=== PATIENT | male | born 1950 | race Caucasian/White ===

== ENCOUNTER 2019-12-03 13:35 | Emergency (ER) | payer MEDICARE ==
--- NOTE | 2019-12-03 15:12 | EDM.PDOC ---
ED HPI GENERAL MEDICAL PROBLEM - General Chief Complaint: Neurological Problem Stated Complaint: VERTIGO Time Seen by Provider: 12/03/19 14:59 Source of Information: Reports: Patient History Limitations: Reports: No Limitations - History of Present Illness INITIAL COMMENTS - FREE TEXT/NARRATIVE: Patient presents with questions about dizziness and also a feeling of a plugged left ear. Symptoms have come and gone over roughly the last week. 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 He did not want to have episodes like he has had while he was in the air. Because of symptoms including a quite pronounced dizziness episode with head position change yesterday, he was seen in a clinic setting. He was still having trouble hearing with his left ear but was told that the eardrums looked normal. He had previously used a candle to extract wax from both ears and it was successful in removing quite a bit. He also has had a feeling of ill ease inside his head. It's not necessarily a pain but he feels as though his brain is shifting around sort of. No syncope. No difficulty with strength or coordination. The dizziness episodes he feels have occurred when he looks from side to side, horizontally. Vertical head movements do not seem to create trouble. The hearing in the left ear is reduced, that in the right ear is not as bad. Based on his clinic visit yesterday it was recommended that he try an antihistamine for symptoms but he has not done so. Onset: Gradual Duration: Day(s):, Intermittent Location: Reports: Head Quality: Reports: Ache Severity: Mild Improves with: Reports: None Worsens with: Reports: Movement - Related Data Allergies Allergy/AdvReac Type Severity Reaction Status Date / Time No Known Allergies Allergy Verified 12/03/19 14:01 Home Meds: Home Meds Glucosam/Chondr/Collagn/Hyalur [Glucosamine & Chondroitin Cap] 1 cap PO DAILY [History] Multivitamin with Minerals [Multiple Vitamin] 1 tab PO DAILY 11/03/17 [History] [place]-3/DHA/Epa/Fish Oil [[place] 3 500 Softgel] 1 cap PO DAILY 11/03/17 [History] Red Yeast Rice 600 mg PO DAILY 11/03/17 [History] Saw [place] 1 tab PO BID 11/03/17 [History] Saw/Vit E/Sod Marjorie/Lyc/Beta/Pyg [Prostate Health Caplet] 1 tab PO BID 11/03/17 [ History] Ubidecarenone [Coenzyme Q10] 100 mg PO DAILY 11/03/17 [History] Witch La [place] [Witch La] 1 dose TOP DAILY 11/03/17 [History] Past Medical History - Past Health History Medical/Surgical History: Denies Medical/Surgical History Social & Family History - Tobacco Use Smoking Status *Q: Never Smoker ED ROS GENERAL - Review of Systems Review Of Systems: See Below Constitutional: Reports: No Symptoms HEENT: Reports: Ear Pain (Left sided along with decreased hearing acuity.), Hearing Loss (His hearing has an echo-like quality right now.) Respiratory: Reports: No Symptoms Cardiovascular: Reports: No Symptoms Neurological: Reports: Dizziness (With head movement.), Difficulty Walking ( Secondary to dizziness imbalance feeling.). Denies: Syncope, Tingling, Tremors , Weakness, Gait Disturbance ED EXAM, NEURO - Physical Exam Exam: See Below Exam Limited By: No Limitations General Appearance: Alert, No Apparent Distress Ears: Other (Tympanic membranes are retracted and dull bilaterally.) Nose: Normal Inspection Throat/Mouth: Normal Inspection Neurological: Alert, Normal Mood/Affect, CN II-XII Intact, No Motor/Sensory Deficits, Oriented x 3 Course - Vital Signs Last Recorded V/S: Last Vital Signs Temp 35.8 C 12/03/19 14:12 Pulse 64 12/03/19 14:12 Resp 17 12/03/19 14:12 BP 112/85 12/03/19 14:12 Pulse Ox 94 L 12/03/19 14:12 - Re-Assessments/Exams Free Text/Narrative Re-Assessment/Exam: 12/03/19 21:36 Discussed with him that he has eustachian tube dysfunction and that we will change the quality of his hearing as well as give him a pressure or fullness sensation in the head sometimes. Sudafed 60 mg 3 times a day would be a reasonable treatment for it and if he flies, I recommend that he began the medication at least 2 days before flying and continue it at least 2 days after completion of his flight. Regarding his dizziness symptoms, they have a mild vertiginous pattern to them. He could use meclizine 25 mg as discussed to see if it improves things but the major factor would be avoiding sudden changes in head position. He understands and will go forward with these measures, rechecking in the clinic if he is not feeling better in the next week or so. Departure - Departure Time of Disposition: 15:32 Disposition: Home, Self-Care 01 Clinical Impression: Vertigo Eustachian tube dysfunction Qualifiers: Laterality: bilateral Qualified Code(s): H69.83 - Other specified disorders of Eustachian tube, bilateral - Discharge Information *PRESCRIPTION DRUG MONITORING PROGRAM REVIEWED*: Not Applicable *COPY OF PRESCRIPTION DRUG MONITORING REPORT IN PATIENT JERRY: Not Applicable Instructions: Eustachian Tube Dysfunction Referrals: Rajan Amaya MD [Primary Care Provider] - Forms: ED Department Discharge Additional Instructions: Sudafed 60 mg 3 times a day regularly over the next week. Meclizine 25 mg, one half or 1 tablet up to 3 times a day for dizziness as needed avoid sudden changes in position or head direction. Recheck in clinic if not improved in 7- 10 days. Return to ER if feeling worse in anyway. Sepsis Event Note - Evaluation Sepsis Screening Result: No Definite Risk - Focused Exam Vital Signs: Vital Signs Temp Pulse Resp BP Pulse Ox 12/03/19 14:12 35.8 C 64 17 112/85 94 L 12/03/19 14:01 35.8 C 64 17 112/85 94 L Date Exam was Performed: 12/03/19 Time Exam was Performed: 21:32
== END 2019-12-03 16:09 | disposition home or self-care (01) ==
LOC: JP.ED 13:35
DX: H69.83 Other specified disorders of Eustachian tube, bilateral (principal)
CPT/HCPCS: 99283

== ENCOUNTER → 2022-01-09 | Day surgery (SDC) | payer MEDICARE ==
[~2022-01-09] MED LIST: Midazolam 1 MG/ML 2 ML SDV ONE; Propofol 200 MG/20 ML SDV ONE; Sodium Chloride 0.9% 1,000 ML IV SCH; fentaNYL 100 MCG/2 ML SDV ONE
== END ==
LOC: JP.SDS 07:15
PROVIDERS: ATTEND Surgery
DX: Z12.11 Encounter for screening for malignant neoplasm of colon (principal); K64.8 Other hemorrhoids; D12.8 Benign neoplasm of rectum
CPT/HCPCS: 88305; J2250; J2704; J3010; J7030